=== PATIENT | male | born 1945 | race Caucasian/White ===

== ENCOUNTER 2020-01-05 12:43 | Inpatient (IN) ==
--- NOTE | 2020-01-05 13:31 | ERNOTE ---
Neuro HPI ER Record Date of Service: 01/05/20 Presenting Symptoms: confusion Time Seen by Provider: 01/05/20 12:57 Source: patient, family - Exam Limitations: clinical condition Immunizations: IMMUNIZATION HX Immunizations Up to Date Yes History of Influenza Vaccine Yes Hx Pneumococcal Vaccination No Allergies/Adverse Reactions: Allergies Allergy/AdvReac Type Severity Reaction Status Date / Time cephalexin Allergy Intermediate rash Verified 11/05/17 09:03 indomethacin Allergy Mild rash Verified 11/05/17 09:03 felodipine Allergy Unknown Verified 11/05/17 09:02 metformin Allergy Unknown Verified 11/05/17 09:01 hydromorphone AdvReac Intermediate hallucinati Verified 11/05/17 09:02 ons Home Medications: HOME MEDICATIONS Allopurinol [Zyloprim] 300 mg PO DAILY 01/05/20 [Last Taken Unknown] Aspirin [Aspirin Chewable] 81 mg PO DAILY 01/05/20 [Last Taken Unknown] Atorvastatin Calcium [Lipitor] 10 mg PO DAILY 01/05/20 [Last Taken Unknown] Clonidine HCl 0.2 mg PO DAILY 01/05/20 [Last Taken Unknown] Ergocalciferol (Vitamin D2) [Vitamin D2] 50,000 unit PO DAILY 01/05/20 [Last Taken Unknown] Ferrous Sulfate [Iron] 325 mg PO DAILY 01/05/20 [Last Taken Unknown] Furosemide [Lasix] 40 mg PO DAILY 01/05/20 [Last Taken Unknown] Gabapentin [Neurontin] 300 mg PO BID 01/05/20 [Last Taken Unknown] Metoprolol Tartrate [Lopressor] 25 mg PO BID 01/05/20 [Last Taken Unknown] Oxybutynin Chloride [Ditropan Xl] 10 mg PO DAILY 01/05/20 [Last Taken Unknown] Pantoprazole Sodium [Protonix] 20 mg PO DAILY 01/05/20 [Last Taken Unknown] Vitamin B Complex 1 ea PO DAILY 01/05/20 [Last Taken Unknown] Warfarin Sodium [Jantoven] 5 mg PO DAILY 01/05/20 [Last Taken Unknown] amLODIPine BESYLATE [Norvasc] 10 mg PO DAILY 01/05/20 [Last Taken Unknown] prednisoLONE [Millipred] 2.5 mg PO DAILY 01/05/20 [Last Taken Unknown] - History of Present Illness Narrative: The patient is a 74 year old male who presents via [facility] with altered mental status which has been present since this afternoon. There are associated symptoms of fever and cough. The patient denies pain. There are no alleviating factors. There are no aggravating factors. Previous treatments have included: none. The past medical history includes: COPD, HTN, IN, pacemaker, CRF, arthritis and hemorrhagic CVA. The social history is positive for former smoker. The patient has had ill contacts at home. states that patient developed cough 2 weeks ago which has been persistent since onset. states that 8 days ago he had a day of confusion that resolved and seemed to be doing well except for decreased appetite associated with loss of taste and smell. Patient today was found by in their bedroom with feces on the floor walking in stool in circles and disoriented. Patient upon arrival of EMS to the home had reported fever of 105F then repeat temp in the rig of 103F. Review of Systems - Narrative Narrative: ROS obtained from due to patient's AMS. - Review of Systems Constitutional: Present: fever, fatigue, decreased activity level ENT: Present: nose congestion, other - loss of taste and smell. Absent: nasal drainage Respiratory: Present: cough Gastrointestinal/Abdominal: Present: eating less, drinking less. Absent: vomiting, diarrhea Genitourinary: Present: decreased urinary output Medical History (Last Reviewed 01/05/20 @ 13:50 by LAURA Nova) Arthritis Brain bleed COPD (chronic obstructive pulmonary disease) Cervical spine fracture Hypertension Kidney disease Myocardial infarction Pacemaker Surgical History: Surgical History (Last Updated 01/05/20 @ 16:29 by Jana Goetz RN) Aortic valve replaced 2018 Hx of appendectomy S/P triple vessel bypass 2003 Family History: Family History (Last Updated 01/05/20 @ 16:30 by Jana Goetz RN) Mother Cancer Father Cancer Sister Cancer Social History: (Last Reviewed 01/05/20 @ 13:50 by LAURA Nova) Tobacco: Smoking Status: Former smoker Physical Exam - Physical Exam General Appearance: Present: alert, mild distress, attentive for age Head Exam: Present: normal inspection, no evidence of injury Eye Exam: Normal inspection: bilateral, PERRL: bilateral, EOMI: bilateral Ears, Nose, Throat: Present: dry mucous membranes Neck: Present: normal inspection Respiratory: Present: no respiratory distress, accessory muscle use, decreased breath sounds - bases bilateral Cardiovascular/Chest: Present: no murmur, tachycardia Gastrointestinal/Abdominal: Present: normal bowel sounds, nontender, nondistended, soft, no organomegaly Extremity Exam: Present: no edema Neurological Exam: Present: alert, normal mood/affect, no motor/sensory deficits, disoriented to time, disoriented to situation, other - follows commands. Absent: disoriented to person, disoriented to place Skin Exam: Present: normal color, warm/dry, other - facial flushing Marianna Coma Scale - Assess Eye Opening: Spontaneous Motor: Obeys Commands Verbal: Confused - Total Coma Scale Total: 14 Progress - Date and Time Seen: Date and Time: 01/05/20 15:19 states that patient was evaluated at [facility] ER on Sunday due to persistent symptoms. Patient received IV dose of steroids and then was started on Prednisone 20mg po daily. Testing results obtained from [facility] and patient was COVID positive. 01/05/20 16:05 Patient now awake and alert and oriented x3. Patient does not recall events that brought him to ER. Case was reviewed with and will admit for hypoxia and COVID-19, difficulty obtaining patient history due to him being poor historian as well as attempting to collect all information. Unsure if patient has known history of Afib, patient does take Warfarin but has history of cardiac stent. CTA negative for PE but shows akila infiltrates likely associated with COVID but will cover with Azithromycin as now known history of antibiotic therapy recently. Patient did not receive am medications, will administer IV Lasix due to hypoxia and elevated BNP 4,000. Reviewed indications with , will review upon admission since patient has had symptoms reported by spouse for 2 weeks. 01/05/20 16:36 Discussed results of INR 1.24, will start patient on Lovenox 1mg/kg due to subtherapeutic level. - Results and Orders Patient's Lab Results:: I have reviewed the patient's lab results. - Vital Signs Patient's Vital Signs:: I have reviewed the patient's vital signs. Vital Signs: Vital Signs 01/05/20 12:45 Temperature 38.9 C H Pulse Rate 106 H Respiratory Rate 28 H Blood Pressure 153/81 H O2 Sat by Pulse Oximetry 78 L - EKG EKG #1 EKG: atrial fibrillation - RVR rate 115, nonspecific ST T wave changes EKG read: Reviewed by me - CT/Ultrasound CT/Ultrasound Narrative: IMPRESSION: 1. NO ACUTE INTRACRANIAL PROCESS; IF THERE IS CONTINUED CLINICAL CONCERN, FOLLOW-UP MRI IS RECOMMENDED Electronically signed by Zion Burgess M.D.. - Progress/Reassessment Chief Complaint: Altered Mental Status Progress:: Improved Departure Clinical Impression: COVID-19, Hypoxia CHF (congestive heart failure) Qualifiers: Heart failure type: unspecified Heart failure chronicity: unspecified Qualified Code(s): I50.9 - Heart failure, unspecified A-fib Qualifiers: Atrial fibrillation type: unspecified Qualified Code(s): I48.91 - Unspecified atrial fibrillation - Departure Disposition: Still a patient Condition: Fair
[2020-01-05] MEDS ORDERED: NORMAL SALINE 1,000 ML IV ONE (13:36)
[2020-01-05] MEDS ORDERED: ACETAMINOPHEN 1,000 MG/100 ML BTL IV ONE (13:36)
[2020-01-05 14:06] LABS: Urine Bilirubin Negative (NEGATIVE); Urine Ketone Negative (NEGATIVE); Urine Nitrite Negative (NEGATIVE); Urine Protein 30 mg/dL (NEGATIVE); Urine Specific Gravity 1.015 SP.GR. (1.005-1.030); Urine Urobilinogen 4 EU/dl (NORMAL)
[2020-01-05 14:07] LABS: Hematocrit 45.1 % (42.0-52.0); Hemoglobin 14.5 gm/dL (13.5-18.0); Mean Cell Volume 100.2 fl (78-100); Mean Corpuscular Hemoglobin 32.2 pg (27-31); Mean Corpuscular Hgb Conc 32.2 g/dl (32-36); Neutrophil # 6.7 K/mm3 (1.3-6.0); Neutrophil % 86.7 % (42-75.0); Platelet Count 136 K/mm3 (150-450); Red Cell Distribution Width 13.5 % (11.5-14.0); White Blood Count 7.8 K/mm3 (4.0-10.5)
[2020-01-05 14:17] LABS: Urine Appearance Clear (CLEAR); Urine Bacteria TRACE; Urine Blood 5 /ul (NEGATIVE); Urine Color Yellow; Urine RBC TRACE /hpf (0-5); Urine WBC TRACE /hpf (0-5)
[2020-01-05 14:21] LABS: Troponin I 0.074 ng/mL (0.00-0.10)
[2020-01-05 14:22] LABS: Albumin * 3.1 gm/dl (3.4-5.0); Anion Gap 7.2 mmol/L (6.8-13.8); BUN/Creatinine Ratio 22.5 (9.0-21.6); Bilirubin, Total 1.1 mg/dL (0.0-1.1); Ca. Corrected For Albumin 9.8 mg/dL (8.4-10.2); Calcium * 9.4 mg/dL (7.9-10.9); Carbon Dioxide 39.8 mmol/L (24-32.6); Total Protein 7.2 gm/dL (6.2-8.2)
[2020-01-05] MEDS ORDERED: FUROSEMIDE 10 MG/ML VIAL IV ONE (16:11)
[2020-01-05 16:25] LABS: Prothrombin Time (Patient) 12.3 Seconds (9.1-10.7)
[2020-01-05] MEDS ORDERED: AZITHROMYCIN 500 MG in DEXTROSE 5 % IN WATER 250 ML IV ONE ×2 (16:26)
[2020-01-05 16:28] LABS: INR 1.25 INR (0.92-1.08); Partial Thrombolplastin Time 28.5 Seconds (24-32)
[2020-01-05] MEDS ORDERED: ENOXAPARIN SODIUM 100 MG/ML SYRG SC SCH (16:45)
--- NOTE | 2020-01-05 18:38 | HP ---
Chief Complaint - Chief Complaint Date of Service: 01/05/20 Time of Service: 18:38 Chief Complaint: AMS, cough, + covid History of Present Illness: 74-year-old male with history of MT, CVA, COPD presented to the ER with altered metal status. Patient diagnosed with Covid last week. Patient has had a cough for the last 2 weeks. Today found patient walking around feces in their bedroom, responding inappropriately to questions. Ambulance was called who came in and brought patient to the ER. Initial fever at home was close to 105 per EMS. Patient was given IV Tylenol here in the ER, started on Lovenox, admitted for Covid infection and altered mental status. Patient's initial temp was 38.9, has been afebrile since given the Tylenol. Patient had a normal white count. Patient was found to have an elevated BNP at 4055. Patient does have some swelling in his legs but is not in respiratory distress. Patient initially was hypoxic but has responded well to oxygen administration via nasal cannula. Patient is on warfarin but was subtherapeutic at 1.25. CTA was negative for pulmonary bolus. Patient admitted as inpatient for Covid infection, transferred to the floor. Medical History (Last Updated 01/05/20 @ 16:29 by Jana Goetz RN) Arthritis Atrial fibrillation Brain bleed CHF (congestive heart failure) COPD (chronic obstructive pulmonary disease) Cervical spine fracture Hypertension Kidney disease Myocardial infarction Pacemaker Pacemaker Surgical History: Surgical History (Last Updated 01/05/20 @ 16:29 by Jana Goetz RN) Aortic valve replaced 2018 Hx of appendectomy S/P triple vessel bypass 2004 Family History: Family History (Last Updated 01/05/20 @ 16:30 by Jana Goetz RN) Mother Cancer Father Cancer Sister Cancer Social History: (Last Updated 01/05/20 @ 16:30 by Jana Goetz RN) Social History: lives independently: Yes household members: spouse parent marital status: current occupational status: retired Tobacco: Smoking Status: Former smoker Alcohol: alcohol intake: current alcohol intake frequency: holiday/special occasion Substance Use: substance use type: does not use Dietary Habits: caffeine: Yes Type: coffee Review Of Systems (GEN) - Review of Systems Generalized/Overall Review: Present: Fever. Absent: Weakness, Chills EENTM: Present: No Symptoms Reported Respiratory: Present: Cough, Shortness of Breath Cardiac: Present: Edema. Absent: Chest Pain, Palpitations Abdominal: Present: No Symptoms Reported Genitourinary: Present: No Symptoms Reported Musculoskeletal: Present: No Symptoms Reported Neurological: Absent: Headache, Weakness Skin: Present: No Symptoms Reported Endocrine: Present: No Symptoms Reported Immunizations: IMMUNIZATION HX Immunizations Up to Date Yes History of Influenza Vaccine Yes Hx Pneumococcal Vaccination No Allergies/Adverse Reactions: Allergies Allergy/AdvReac Type Severity Reaction Status Date / Time cephalexin Allergy Intermediate rash Verified 11/05/17 09:03 indomethacin Allergy Mild rash Verified 11/05/17 09:03 felodipine Allergy Unknown Verified 11/05/17 09:02 metformin Allergy Unknown Verified 11/05/17 09:01 hydromorphone AdvReac Intermediate hallucinati Verified 11/05/17 09:02 ons Home Medications: HOME MEDICATIONS Allopurinol [Zyloprim] 300 mg PO DAILY 01/05/20 [Last Taken Unknown] Aspirin [Aspirin Chewable] 81 mg PO DAILY 01/05/20 [Last Taken Unknown] Atorvastatin Calcium [Lipitor] 10 mg PO DAILY 01/05/20 [Last Taken Unknown] Clonidine HCl 0.2 mg PO DAILY 01/05/20 [Last Taken Unknown] Ergocalciferol (Vitamin D2) [Vitamin D2] 50,000 unit PO DAILY 01/05/20 [Last Taken Unknown] Ferrous Sulfate [Iron] 325 mg PO DAILY 01/05/20 [Last Taken Unknown] Furosemide [Lasix] 40 mg PO DAILY 01/05/20 [Last Taken Unknown] Gabapentin [Neurontin] 300 mg PO BID 01/05/20 [Last Taken Unknown] Metoprolol Tartrate [Lopressor] 25 mg PO BID 01/05/20 [Last Taken Unknown] Oxybutynin Chloride [Ditropan Xl] 10 mg PO DAILY 01/05/20 [Last Taken Unknown] Pantoprazole Sodium [Protonix] 20 mg PO DAILY 01/05/20 [Last Taken Unknown] Vitamin B Complex 1 ea PO DAILY 01/05/20 [Last Taken Unknown] Warfarin Sodium [Jantoven] 5 mg PO DAILY 01/05/20 [Last Taken Unknown] amLODIPine BESYLATE [Norvasc] 10 mg PO DAILY 01/05/20 [Last Taken Unknown] prednisoLONE [Millipred] 2.5 mg PO DAILY 01/05/20 [Last Taken Unknown] Exam - Exam Vital Signs: Vital Signs - Last Taken Temp 36.9 C 01/05/20 17:47 Pulse 116 H 01/05/20 17:47 Resp 20 01/05/20 17:47 BP 120/70 01/05/20 17:47 Pulse Ox 93 01/05/20 17:47 Constitutional: Present: Alert, Oriented x3, Cooperative, Elderly ENT Exam: Present: hard of hearing. Absent: nasal congestion, nasal drainage Eye Exam: bilateral eye: normal inspection, EOMI Neck: Present: non-tender, supple Respiratory: Present: chest non-tender, lungs clear, normal breath sounds, no respiratory distress Cardiovascular/Chest: Present: no murmur, tachycardia, edema Abdomen: Present: soft, nontender, nondistended, obese Extremity: Present: non-tender Skin Exam: Present: normal color, warm/dry Appearance: Present: appropriate appearance, appropriate insight Eye contact: Present: cooperative, good eye contact Thoughts: Present: normal thought pattern, no apparent hallucination, normal mood /affect Diagnostic Studies: Abnormal Lab Results 01/05/20 01/05/20 01/05/20 Range/Units 13:15 13:37 14:00 RBC 4.50 L (4.7-6.0) M/mm3 MCV 100.2 H (78-100) fl MCH 32.2 H (27-31) pg Plt Count 136 L (150-450) K/mm3 MPV 12.0 H (8-11.3) fl Immature Gran % (Auto) 2.30 H (0.001-0.429) % Immature Gran # (Auto) 0.18 H (0.000-0.0310) K/mm3 Neutrophils % 86.7 H (42-75.0) % Lymphocytes % 4.4 L (20-51) % Neutrophils # 6.7 H (1.3-6.0) K/mm3 Lymphocytes # 0.34 L (1.5-3.5) k/mm3 PT 12.3 H (9.1-10.7) Seconds INR (Anticoag Therapy) 1.25 H (0.92-1.08) INR D-Dimer (0.19-0.49) ug/mL pO2 48.9 L (83.0-108.0) mmHg HCO3 37.9 H (21.0-28.0) mmol/L Total CO2 39.2 H (19.0-24.0) mmol/L Base Excess 14.0 H (-2.0-3.0) mmol/L ABG pH 7.56 H (7.35-7.45) ABG O2 Sat (Measured) 89.2 L (94.0-98.0) % Sodium (132-142) mmol/L Plasma Sodium (130-142) mmol/L Potassium (3.4-4.6) mmol/L Carbon Dioxide (24-32.6) mmol/L BUN (6-23) mg/dL Creatinine (0.4-1.4) mg/dL Est GFR (Non-Af Amer) (60-130) mL/min BUN/Creatinine Ratio (9.0-21.6) AST (0-48) U/L B-Natriuretic Peptide (5-350) pg/mL Albumin (3.4-5.0) gm/dl Urine Protein (NEGATIVE) mg/dL Urine Blood (NEGATIVE) /ul Prot Sulfosalicylic Acd (0) mg/dL Urine Urobilinogen (NORMAL) EU/dl 01/05/20 01/05/20 01/05/20 Range/Units 14:00 14:00 14:00 RBC (4.7-6.0) M/mm3 MCV (78-100) fl MCH (27-31) pg Plt Count (150-450) K/mm3 MPV (8-11.3) fl Immature Gran % (Auto) (0.001-0.429) % Immature Gran # (Auto) (0.000-0.0310) K/mm3 Neutrophils % (42-75.0) % Lymphocytes % (20-51) % Neutrophils # (1.3-6.0) K/mm3 Lymphocytes # (1.5-3.5) k/mm3 PT (9.1-10.7) Seconds INR (Anticoag Therapy) (0.92-1.08) INR D-Dimer 5.62 H (0.19-0.49) ug/mL pO2 (83.0-108.0) mmHg HCO3 (21.0-28.0) mmol/L Total CO2 (19.0-24.0) mmol/L Base Excess (-2.0-3.0) mmol/L ABG pH (7.35-7.45) ABG O2 Sat (Measured) (94.0-98.0) % Sodium 144 H (132-142) mmol/L Plasma Sodium 144 H (130-142) mmol/L Potassium 3.0 L (3.4-4.6) mmol/L Carbon Dioxide 39.8 H (24-32.6) mmol/L BUN 48 H (6-23) mg/dL Creatinine 2.13 H (0.4-1.4) mg/dL Est GFR (Non-Af Amer) 33 L D (60-130) mL/min BUN/Creatinine Ratio 22.5 H (9.0-21.6) AST 52 H (0-48) U/L B-Natriuretic Peptide 4055 H (5-350) pg/mL Albumin 3.1 L (3.4-5.0) gm/dl Urine Protein 30 H (NEGATIVE) mg/dL Urine Blood 5 H (NEGATIVE) /ul Prot Sulfosalicylic Acd 2+ H (0) mg/dL Urine Urobilinogen 4 H (NORMAL) EU/dl Laboratory Results WBC 7.8 K/mm3 (4.0-10.5) 01/05/20 14:00 RBC 4.50 M/mm3 (4.7-6.0) L 01/05/20 14:00 Hgb 14.5 gm/dL (13.5-18.0) 01/05/20 14:00 Hct 45.1 % (42.0-52.0) 01/05/20 14:00 MCV 100.2 fl (78-100) H 01/05/20 14:00 MCH 32.2 pg (27-31) H 01/05/20 14:00 MCHC 32.2 g/dl (32-36) 01/05/20 14:00 RDW 13.5 % (11.5-14.0) 01/05/20 14:00 Plt Count 136 K/mm3 (150-450) L 01/05/20 14:00 MPV 12.0 fl (8-11.3) H 01/05/20 14:00 Immature Gran % (Auto) 2.30 % (0.001-0.429) H 01/05/20 14:00 Immature Gran # (Auto) 0.18 K/mm3 (0.000-0.0310) H 01/05/20 14:00 Neutrophils % 86.7 % (42-75.0) H 01/05/20 14:00 Lymphocytes % 4.4 % (20-51) L 01/05/20 14:00 Monocytes % 6.3 % (0.0-9) 01/05/20 14:00 Eosinophils % 0.0 % (0.0-3.0) 01/05/20 14:00 Basophils % 0.3 % (0.0-1.0) 01/05/20 14:00 Nucleated RBC % 0.0 k/mm3 (0-1) 01/05/20 14:00 Neutrophils # 6.7 K/mm3 (1.3-6.0) H 01/05/20 14:00 Lymphocytes # 0.34 k/mm3 (1.5-3.5) L 01/05/20 14:00 Monocytes # 0.5 k/mm3 (0.0-1.0) 01/05/20 14:00 Eosinophils # 0.0 k/mm3 (0.0-0.7) 01/05/20 14:00 Absolute Basophils 0.0 k/mm3 (0.0-0.1) 01/05/20 14:00 PT 12.3 Seconds (9.1-10.7) H 01/05/20 13:37 INR (Anticoag Therapy) 1.25 INR (0.92-1.08) H 01/05/20 13:37 PTT (Rice) 28.5 Seconds (24-32) 01/05/20 13:37 D-Dimer 5.62 ug/mL (0.19-0.49) H 01/05/20 14:00 pCO2 43.4 mmHg (35.0-48.0) 01/05/20 13:15 pO2 48.9 mmHg (83.0-108.0) L 01/05/20 13:15 HCO3 37.9 mmol/L (21.0-28.0) H 01/05/20 13:15 Total CO2 39.2 mmol/L (19.0-24.0) H 01/05/20 13:15 Base Excess 14.0 mmol/L (-2.0-3.0) H 01/05/20 13:15 ABG pH 7.56 (7.35-7.45) H 01/05/20 13:15 ABG O2 Sat (Measured) 89.2 % (94.0-98.0) L 01/05/20 13:15 Sodium 144 mmol/L (132-142) H 01/05/20 14:00 Plasma Sodium 144 mmol/L (130-142) H 01/05/20 14:00 Potassium 3.0 mmol/L (3.4-4.6) L 01/05/20 14:00 Chloride 100 mmol/L (97-106) 01/05/20 14:00 Carbon Dioxide 39.8 mmol/L (24-32.6) H 01/05/20 14:00 Anion Gap 7.2 mmol/L (6.8-13.8) 01/05/20 14:00 BUN 48 mg/dL (6-23) H 01/05/20 14:00 Creatinine 2.13 mg/dL (0.4-1.4) H 01/05/20 14:00 Est GFR (Non-Af Amer) 33 mL/min (60-130) L D 01/05/20 14:00 BUN/Creatinine Ratio 22.5 (9.0-21.6) H 01/05/20 14:00 Random Glucose 94 mg/dL (70-110) 01/05/20 14:00 Lactic Acid, Venous 1.7 mmol/L (0.4-2.0) 01/05/20 14:00 Calcium 9.4 mg/dL (7.9-10.9) 01/05/20 14:00 Calcium Adj for Albumin 9.8 mg/dL (8.4-10.2) 01/05/20 14:00 Total Bilirubin 1.1 mg/dL (0.0-1.1) 01/05/20 14:00 AST 52 U/L (0-48) H 01/05/20 14:00 ALT 31 U/L (19-67) 01/05/20 14:00 Alkaline Phosphatase 54 U/L (50-170) 01/05/20 14:00 Troponin I 0.074 ng/mL (0.00-0.10) 01/05/20 14:00 B-Natriuretic Peptide 4055 pg/mL (5-350) H 01/05/20 14:00 Total Protein 7.2 gm/dL (6.2-8.2) 01/05/20 14:00 Albumin 3.1 gm/dl (3.4-5.0) L 01/05/20 14:00 Procalcitonin 0.46 ng/mL (0.05-0.50) 01/05/20 14:00 Urine Color Yellow 01/05/20 14:00 Urine Appearance Clear (CLEAR) 01/05/20 14:00 Urine pH 7.0 pH (5.0-7.0) 01/05/20 14:00 Ur Specific [place] 1.015 SP.GR. (1.005-1.030) 01/05/20 14:00 Urine Protein 30 mg/dL (NEGATIVE) H 01/05/20 14:00 Urine Glucose (UA) Negative mg/dL (NEGATIVE) 01/05/20 14:00 Urine Ketones Negative mg/dL (NEGATIVE) 01/05/20 14:00 Urine Blood 5 /ul (NEGATIVE) H 01/05/20 14:00 Urine Nitrate Negative (NEGATIVE) 01/05/20 14:00 Urine Bilirubin Negative mg/dl (NEGATIVE) 01/05/20 14:00 Prot Sulfosalicylic Acd 2+ mg/dL (0) H 01/05/20 14:00 Urine Urobilinogen 4 EU/dl (NORMAL) H 01/05/20 14:00 Ur Leukocyte Esterase Negative /ul (NEGATIVE) 01/05/20 14:00 Urine RBC Trace /hpf (0-5) 01/05/20 14:00 Urine WBC Trace /hpf (0-5) 01/05/20 14:00 Ur Epithelial Cells Trace /hpf (0-5) 01/05/20 14:00 Urine Bacteria Trace (NONE) 01/05/20 14:00 Urine Culture Comments No culture indicated 01/05/20 14:00 Assessment/Plan - Assessment/Plan (1) COVID-19 Assessment: Admitted as inpatient. Started on oxygen via nasal cannula for hypoxia. Currently receiving Lovenox at 80 mg twice daily until Coumadin is therapeutic. Repeat INR in the morning. Started on Decadron 6 mg daily. Problem: Acute (2) CHF (congestive heart failure) Assessment: Fluid restricting patient to 2000 cc free fluid. Strict I's and O's. Patient received IV Lasix in the ER. Restarted home Lasix dose. Problem: Acute Qualifiers: Heart failure type: unspecified Heart failure chronicity: unspecified Qualified Code(s): I50.9 - Heart failure, unspecified (3) A-fib Assessment: Patient not any chest pain. Patient on warfarin for this. Patient subtherapeutic again, being bridged with Lovenox. Repeat INR in the morning Problem: Acute Qualifiers: Atrial fibrillation type: unspecified Qualified Code(s): I48.91 - Unspecified atrial fibrillation (4) Hypoxia Assessment: Resolved with oxygen via nasal cannula. We will continue to monitor. Want to keep oxygen saturations between 91 and 93% Problem: Acute (5) Subtherapeutic international normalized ratio (INR) Assessment: Extra dose of warfarin given today. On Lovenox. Repeat INR in the morning. Problem: Acute
[2020-01-05] MEDS ORDERED: DEXAMETHASONE SODIUM PHOSPHATE 4 MG/ML VIAL IV SCH (18:45)
[2020-01-05] MEDS ORDERED: ENOXAPARIN SODIUM 40 MG/0.4 ML SYRG SC SCH (18:45)
[2020-01-05] MEDS: WARFARIN SODIUM 5 MG TABLET PO SCH (20:58)
[2020-01-05] MEDS: OXYBUTYNIN CHLORIDE 5 MG TABLET PO SCH (20:59)
[2020-01-05] MEDS: GABAPENTIN 300 MG CAPSULE PO SCH (20:59)
[2020-01-05] MEDS: ACETAMINOPHEN 325 MG TABLET PO SCH (20:59)
[2020-01-05] MEDS: METOPROLOL TARTRATE 25 MG TABLET PO SCH (21:00)
[2020-01-06] MEDS: ACETAMINOPHEN 325 MG TABLET PO SCH ×4 (01:32→21:21)
[2020-01-06 06:59] LABS: INR 1.29 INR (0.92-1.08); Prothrombin Time (Patient) 12.6 Seconds (9.1-10.7)
[2020-01-06] MEDS ORDERED: ROSUVASTATIN CALCIUM 5 MG TABLET PO SCH (09:00)
[2020-01-06] MEDS ORDERED: ENOXAPARIN SODIUM 40 MG/0.4 ML SYRG SC SCH (09:00)
[2020-01-06] MEDS: ALLOPURINOL 300 MG TABLET PO SCH (09:29)
[2020-01-06] MEDS: OXYBUTYNIN CHLORIDE 5 MG TABLET PO SCH ×2 (09:29→21:21)
[2020-01-06] MEDS: METOPROLOL TARTRATE 25 MG TABLET PO SCH ×2 (09:29→21:24)
[2020-01-06] MEDS: GABAPENTIN 300 MG CAPSULE PO SCH ×2 (09:29→21:20)
[2020-01-06] MEDS: PANTOPRAZOLE SODIUM 20 MG TABLET.DR PO SCH (09:29)
[2020-01-06] MEDS: amLODIPine BESYLATE 10 MG TABLET PO SCH (09:31)
[2020-01-06] MEDS: FUROSEMIDE 40 MG TABLET PO SCH (09:31)
[2020-01-06] MEDS: ENOXAPARIN SODIUM 80 MG/0.8 ML DISP.SYRIN SC SCH ×2 (09:38→21:21)
[2020-01-06] MEDS: DEXAMETHASONE SODIUM PHOSPHATE 10 MG/ML VIAL IV SCH (09:42)
[2020-01-06] MEDS ORDERED: METOPROLOL TARTRATE 25 MG TABLET PO ONE (11:30)
[2020-01-06] MEDS: WARFARIN SODIUM 5 MG TABLET PO SCH (17:09)
--- NOTE | 2020-01-06 19:02 | PN ---
Subjective - Date and Time Seen Date: 01/06/20 Time: 19:02 Subjective Narrative: Zion feels ok today. Still having shortness of breath. Still hypoxic without o2. No acute events over night. Objective - Review of Systems Generalized/Overall Review: Denies: Weakness, Chills, Fever EENTM: Reports: No Symptoms Reported Respiratory: Reports: Cough, Shortness of Breath Cardiac: Reports: No Symptoms Reported Abdominal: Reports: No Symptoms Reported Skin: Reports: No Symptoms Reported Endocrine: Reports: No Symptoms Reported - Vitals Vitals: Last Vital Signs Temp 36 C 01/06/20 18:02 Pulse 101 H 01/06/20 18:02 Resp 16 01/06/20 18:02 BP 152/85 H 01/06/20 18:02 Pulse Ox 95 01/06/20 18:02 - Abnormal Lab Findings Abnormal Lab Findings: Abnormal Lab Results 01/06/20 Range/Units 06:45 PT 12.6 H (9.1-10.7) Seconds INR (Anticoag Therapy) 1.29 H (0.92-1.08) INR - Exam Constitutional: Present: Alert, Oriented x3, Elderly Respiratory: Present: lungs clear, normal breath sounds Cardiovascular/Chest: Present: regular rate, rhythm, no murmur, edema Abdomen: Present: soft, nontender Skin Exam: Present: normal color, warm/dry Appearance: Present: appropriate appearance, appropriate insight Eye contact: Present: cooperative, good eye contact Thoughts: Present: normal thought pattern, normal mood /affect Assessment/Plan - Problems/Diagnosis (1) COVID-19 Problem: Acute Narrative: Continue o2, lovenox, decadromn. Stable, vitals appropriate currently. (2) CHF (congestive heart failure) Problem: Acute Qualifiers: Heart failure type: unspecified Heart failure chronicity: unspecified Qualified Code(s): I50.9 - Heart failure, unspecified (3) A-fib Problem: Acute Qualifiers: Atrial fibrillation type: unspecified Qualified Code(s): I48.91 - Unspecified atrial fibrillation Narrative: Subtherapeutic on warfarin, on lovenox. HR mildly elevated, increased his beta dick to 50 mg BID. (4) Hypoxia Problem: Acute Narrative: Stable on o2 via NC (5) Subtherapeutic international normalized ratio (INR) Problem: Acute
[2020-01-06] MEDS: ROSUVASTATIN CALCIUM 5 MG TABLET PO SCH (21:21)
[2020-01-06] MEDS: METOPROLOL TARTRATE 50 MG TABLET PO SCH (21:23)
[2020-01-07] MEDS: ACETAMINOPHEN 325 MG TABLET PO SCH ×4 (02:12→21:53)
[2020-01-07] MEDS: ENOXAPARIN SODIUM 80 MG/0.8 ML DISP.SYRIN SC SCH ×2 (07:10→21:53)
[2020-01-07 07:42] LABS: INR 1.43 INR (0.92-1.08)
[2020-01-07] MEDS: DEXAMETHASONE SODIUM PHOSPHATE 10 MG/ML VIAL IV SCH (08:00)
[2020-01-07] MEDS: FUROSEMIDE 40 MG TABLET PO SCH (08:00)
[2020-01-07] MEDS: GABAPENTIN 300 MG CAPSULE PO SCH ×2 (08:01→21:54)
[2020-01-07] MEDS: OXYBUTYNIN CHLORIDE 5 MG TABLET PO SCH ×2 (08:02→21:54)
[2020-01-07] MEDS: amLODIPine BESYLATE 10 MG TABLET PO SCH (08:02)
[2020-01-07] MEDS: ALLOPURINOL 300 MG TABLET PO SCH (08:02)
[2020-01-07] MEDS: PANTOPRAZOLE SODIUM 20 MG TABLET.DR PO SCH (08:02)
[2020-01-07] MEDS: METOPROLOL TARTRATE 50 MG TABLET PO SCH ×2 (08:35→21:54)
[2020-01-07 08:53] LABS: Anion Gap 5.2 mmol/L (6.8-13.8); BUN/Creatinine Ratio 17.4 (9.0-21.6); Calcium * 8.8 mg/dL (7.9-10.9); Carbon Dioxide 37.6 mmol/L (24-32.6); Estimated Creat Clear 39.5; Potassium 2.8 mmol/L (3.4-4.6)
--- NOTE | 2020-01-07 17:36 | PN ---
Subjective - Date and Time Seen Date: 01/07/20 Time: 17:35 Subjective Narrative: Zion is doing much better today as well. Cognitively back to baseline. Patient is getting a little stir crazy but otherwise feels well. Breathing is much better and is maintaining good sats on 2 L of oxygen. He did have a slight fever this morning around 6 AM but otherwise has been afebrile. Objective - Review of Systems Generalized/Overall Review: Denies: Weakness, Chills, Fever EENTM: Reports: No Symptoms Reported Respiratory: Reports: Cough - Mild. Denies: Shortness of Breath Cardiac: Denies: Chest Pain, Edema Abdominal: Denies: Nausea, Vomiting Genitourinary Symptoms: Reports: No Symptoms Reported Musculoskeletal Complaints: Reports: No Symptoms Reported Neurological: Reports: No Symptoms Reported Skin: Reports: No Symptoms Reported - Vitals Vitals: Last Vital Signs Temp 36.1 C 01/07/20 13:59 Pulse 96 01/07/20 16:46 Resp 18 01/07/20 16:46 BP 127/74 01/07/20 16:46 Pulse Ox 95 01/07/20 16:46 - Abnormal Lab Findings Abnormal Lab Findings: Abnormal Lab Results 01/07/20 01/07/20 Range/Units 07:20 07:20 PT 14.0 H (9.1-10.7) Seconds INR (Anticoag Therapy) 1.43 H (0.92-1.08) INR Potassium 2.8 L (3.4-4.6) mmol/L Carbon Dioxide 37.6 H (24-32.6) mmol/L Anion Gap 5.2 L (6.8-13.8) mmol/L BUN 30 H (6-23) mg/dL Creatinine 1.72 H D (0.4-1.4) mg/dL Est GFR (Non-Af Amer) 42 L D (60-130) mL/min Random Glucose 127 H D (70-110) mg/dL - Exam Constitutional: Present: Alert, Oriented x3, No distress, Elderly Respiratory: Present: lungs clear, normal breath sounds, no respiratory distress, other - On 2 L nasal cannula Cardiovascular/Chest: Present: regular rate, rhythm, no murmur Abdomen: Present: soft, nontender, nondistended Extremity: Absent: lower extremity edema Skin Exam: Present: normal color, warm/dry Appearance: Present: appropriate appearance, appropriate insight Thoughts: Present: normal thought pattern, normal mood /affect Assessment/Plan Plan Narrative: Patient appears to be doing very well. If he maintains sats overnight on 2 L or less than likely would be discharged home tomorrow with oxygen. He is still subtherapeutic on his INR though and may need to go home with Lovenox. Repeat INR in the morning. We will continue Decadron. Continue Lovenox. Nurse to call with questions or concerns. - Problems/Diagnosis (1) COVID-19 Problem: Acute (2) CHF (congestive heart failure) Problem: Acute Qualifiers: Heart failure type: unspecified Heart failure chronicity: unspecified Qualified Code(s): I50.9 - Heart failure, unspecified (3) A-fib Problem: Acute Qualifiers: Atrial fibrillation type: unspecified Qualified Code(s): I48.91 - Unspecified atrial fibrillation (4) Hypoxia Problem: Acute (5) Subtherapeutic international normalized ratio (INR) Problem: Acute
[2020-01-07] MEDS: WARFARIN SODIUM 5 MG TABLET PO SCH (18:47)
[2020-01-07] MEDS: ROSUVASTATIN CALCIUM 5 MG TABLET PO SCH (21:54)
[2020-01-08] MEDS: ACETAMINOPHEN 325 MG TABLET PO SCH ×4 (02:07→19:29)
[2020-01-08] MEDS: ENOXAPARIN SODIUM 80 MG/0.8 ML DISP.SYRIN SC SCH (07:24)
[2020-01-08] MEDS: METOPROLOL TARTRATE 50 MG TABLET PO SCH ×2 (08:30→20:53)
[2020-01-08] MEDS: FUROSEMIDE 40 MG TABLET PO SCH (08:31)
[2020-01-08] MEDS: PANTOPRAZOLE SODIUM 20 MG TABLET.DR PO SCH (08:31)
[2020-01-08] MEDS: amLODIPine BESYLATE 10 MG TABLET PO SCH (08:31)
[2020-01-08] MEDS: ALLOPURINOL 300 MG TABLET PO SCH (08:31)
[2020-01-08] MEDS: OXYBUTYNIN CHLORIDE 5 MG TABLET PO SCH ×2 (08:32→20:51)
[2020-01-08] MEDS: DEXAMETHASONE SODIUM PHOSPHATE 10 MG/ML VIAL IV SCH (08:32)
[2020-01-08] MEDS: GABAPENTIN 300 MG CAPSULE PO SCH ×2 (08:33→20:51)
[2020-01-08 09:28] LABS: Prothrombin Time (Patient) 21.2 Seconds (9.1-10.7)
[2020-01-08 09:29] LABS: INR 2.21 INR (0.92-1.08)
[2020-01-08] MEDS ORDERED: POTASSIUM CHLORIDE 20 MEQ/15 ML UDC PO SCH (09:30)
[2020-01-08] MEDS: POTASSIUM CHLORIDE 40 MEQ/15 ML LIQUID PO SCH (10:03)
[2020-01-08] MEDS: WARFARIN SODIUM 5 MG TABLET PO SCH (16:02)
[2020-01-08] MEDS ORDERED: WARFARIN SODIUM 2.5 MG TABLET PO ONE (17:00)
[2020-01-08 17:04] LABS: Anion Gap 5.9 mmol/L (6.8-13.8); BUN/Creatinine Ratio 17.6 (9.0-21.6); Calcium * 8.7 mg/dL (7.9-10.9); Estimated Creat Clear 41.2; Potassium 3.9 mmol/L (3.4-4.6)
[2020-01-08] MEDS: ROSUVASTATIN CALCIUM 5 MG TABLET PO SCH (20:51)
[2020-01-08] MEDS: POTASSIUM CHLORIDE 20 MEQ TABLET.SA PO SCH (21:24)
[2020-01-08] MEDS ORDERED: POTASSIUM CHLORIDE 40 MEQ/15 ML LIQUID PO SCH (21:30)
--- NOTE | 2020-01-08 23:32 | PN ---
Subjective - Date and Time Seen Date: 01/08/20 Time: 17:23 Subjective Narrative: PAtient resting comfortably in his bed. Vitals currently stable. He does desat in the mornings while sleeping but otherwise feels great and has no concerns. His INR is back within normal limits. Lovenox stopped today Objective - Review of Systems Generalized/Overall Review: Denies: Weakness, Chills, Fever EENTM: Reports: No Symptoms Reported Respiratory: Reports: Cough, Shortness of Breath Cardiac: Denies: Chest Pain, Edema Abdominal: Denies: No Symptoms Reported Genitourinary Symptoms: Denies: No Symptoms Reported Musculoskeletal Complaints: Denies: No Symptoms Reported Neurological: Denies: No Symptoms Reported - Vitals Vitals: Last Vital Signs Temp 36.3 C 01/08/20 21:32 Pulse 86 01/08/20 21:32 Resp 22 H 01/08/20 21:32 BP 153/91 H 01/08/20 21:32 Pulse Ox 95 01/08/20 21:32 - Abnormal Lab Findings Abnormal Lab Findings: Abnormal Lab Results 01/08/20 01/08/20 Range/Units 09:05 16:37 PT 21.2 H (9.1-10.7) Seconds INR (Anticoag Therapy) 2.21 H (0.92-1.08) INR Carbon Dioxide 36.0 H (24-32.6) mmol/L Anion Gap 5.9 L (6.8-13.8) mmol/L BUN 29 H (6-23) mg/dL Creatinine 1.65 H (0.4-1.4) mg/dL Est GFR (Non-Af Amer) 44 L (60-130) mL/min Random Glucose 324 H D (70-110) mg/dL - Exam Constitutional: Present: Alert, Oriented x3, No distress, Elderly ENT Exam: Present: hard of hearing Neck: Present: non-tender, supple Respiratory: Present: lungs clear, no respiratory distress. Absent: crackles Cardiovascular/Chest: Present: no murmur, irregularly irregular Skin Exam: Present: normal color, warm/dry Appearance: Present: appropriate appearance, appropriate insight Thoughts: Present: normal thought pattern, normal mood /affect Assessment/Plan - Problems/Diagnosis (1) COVID-19 Problem: Acute Narrative: Patient with cough. denies SOB. Pstient is afebrile for last 24 hours. Sats stabilize except he does have some hypoxia in the early mornings. Will increase o2 flow via NC this evening. Otherwise he has done well on 2 L. Stopped lovemox, he is now therapeutic on warfarin. Continue decadron Likely dc tomorrow with oxygen (2) CHF (congestive heart failure) Problem: Acute Qualifiers: Heart failure type: unspecified Heart failure chronicity: unspecified Qualified Code(s): I50.9 - Heart failure, unspecified (3) A-fib Problem: Acute Qualifiers: Atrial fibrillation type: unspecified Qualified Code(s): I48.91 - Unspecified atrial fibrillation Narrative: Rate much better controlled when increased his metoprolol. Also on warfatin, no therapeutic (4) Hypoxia Problem: Resolved (5) Subtherapeutic international normalized ratio (INR) Problem: Resolved
[2020-01-09] MEDS: ACETAMINOPHEN 325 MG TABLET PO SCH ×3 (02:04→14:20)
[2020-01-09] MEDS: POTASSIUM CHLORIDE 40 MEQ/15 ML LIQUID PO SCH (06:19)
[2020-01-09 08:00] LABS: Prothrombin Time (Patient) 29.2 Seconds (9.1-10.7)
[2020-01-09 08:04] LABS: INR 3.08 INR (0.92-1.08)
[2020-01-09] MEDS: GABAPENTIN 300 MG CAPSULE PO SCH (08:33)
[2020-01-09] MEDS: OXYBUTYNIN CHLORIDE 5 MG TABLET PO SCH (08:34)
[2020-01-09] MEDS: FUROSEMIDE 40 MG TABLET PO SCH (08:34)
[2020-01-09] MEDS: amLODIPine BESYLATE 10 MG TABLET PO SCH (08:34)
[2020-01-09] MEDS: POTASSIUM CHLORIDE 20 MEQ TABLET.SA PO SCH (08:34)
[2020-01-09] MEDS: ALLOPURINOL 300 MG TABLET PO SCH (08:34)
[2020-01-09] MEDS: PANTOPRAZOLE SODIUM 20 MG TABLET.DR PO SCH (08:35)
[2020-01-09] MEDS: METOPROLOL TARTRATE 50 MG TABLET PO SCH (08:35)
[2020-01-09] MEDS: DEXAMETHASONE SODIUM PHOSPHATE 10 MG/ML VIAL IV SCH (08:36)
--- NOTE | 2020-01-09 13:08 | DS ---
(1) Acute respiratory failure due to COVID-19 Problem: Resolved (2) A-fib Problem: Acute Qualifiers: Atrial fibrillation type: unspecified Qualified Code(s): I48.91 - Unspecified atrial fibrillation (3) COVID-19 Problem: Acute (4) Hypertension Problem: Acute Qualifiers: Hypertension type: essential hypertension Qualified Code(s): I10 - Essential (primary) hypertension (5) Subtherapeutic international normalized ratio (INR) Problem: Resolved (6) CHF (congestive heart failure) Problem: Resolved Qualifiers: Heart failure type: diastolic Heart failure chronicity: unspecified Qualified Code(s): I50.30 - Unspecified diastolic (congestive) heart failure Date of Discharge:: 01/09/20 Hospital Course: Zion is a 74 yo male admitted for acute respiratory failure with hypoxia secondary to COVID-19. He was treated with IV dexamethasone and oxygen. His oxygen requirements have been stable over the last few days and he appears to be at a new baseline at the moment. He is feeling better and would like to be discharged to home. He will be discharged to home on 3lpm of oxygen continuous. He will follow up with a video visit in a week. His metoprolol was increased from 25mg BID to 50mg BID. I will send him home on a tapered dose of prednisolone of 5mg daily x 5 days and then down to his home dose of 2.5mg daily. He has evidence of sleep apnea and will need an outpatient sleep study in the future. Procedures Performed: none Results and Findings: Pending Mircobiology Results 01/05/20 14:21 Blood Blood Culture - Preliminary NO GROWTH AFTER 48 HOURS 01/05/20 14:00 Blood Blood Culture - Preliminary NO GROWTH AFTER 48 HOURS Lab Pending Results 01/05/20 13:15: pCO2 43.4, pO2 48.9 L, HCO3 37.9 H, Total CO2 39.2 H, Base Excess 14.0 H, ABG pH 7.56 H, ABG O2 Sat (Measured) 89.2 L 01/05/20 13:37: PT 12.3 H, INR (Anticoag Therapy) 1.25 H, PTT (Iker) 28.5 01/05/20 14:00: Procalcitonin 0.46 01/05/20 14:00: WBC 7.8, RBC 4.50 L, Hgb 14.5, Hct 45.1, MCV 100.2 H, MCH 32.2 H, MCHC 32.2, RDW 13.5, Plt Count 136 L, MPV 12.0 H, Immature Gran % (Auto) 2.30 H, Immature Gran # (Auto) 0.18 H, Neutrophils % 86.7 H, Lymphocytes % 4.4 L, Monocytes % 6.3, Eosinophils % 0.0, Basophils % 0.3, Nucleated RBC % 0.0, Neutrophils # 6.7 H, Lymphocytes # 0.34 L, Monocytes # 0.5, Eosinophils # 0.0, Absolute Basophils 0.0 01/05/20 14:00: Sodium 144 H, Plasma Sodium 144 H, Potassium 3.0 L, Chloride 100, Carbon Dioxide 39.8 H, Anion Gap 7.2, BUN 48 H, Creatinine 2.13 H, Est GFR (Non-Af Amer) 33 L D, BUN/Creatinine Ratio 22.5 H, Random Glucose 94, Calcium 9.4, Calcium Adj for Albumin 9.8, Total Bilirubin 1.1, AST 52 H, ALT 31, Alkaline Phosphatase 54, Troponin I 0.074, B-Natriuretic Peptide 4055 H, Total Protein 7.2, Albumin 3.1 L 01/05/20 14:00: Lactic Acid, Venous 1.7 01/05/20 14:00: Urine Color Yellow, Urine Appearance Clear, Urine pH 7.0, Ur Specific [place] 1.015, Urine Protein 30 H, Urine Glucose (UA) Negative, Urine Ketones Negative, Urine Blood 5 H, Urine Nitrate Negative, Urine Bilirubin Negative, Prot Sulfosalicylic Acd 2+ H, Urine Urobilinogen 4 H, Ur Leukocyte Esterase Negative, Urine RBC Trace, Urine WBC Trace, Ur Epithelial Cells Trace, Urine Bacteria Trace, Urine Culture Comments No culture indicated 01/05/20 14:00: D-Dimer 5.62 H 01/06/20 06:45: PT 12.6 H, INR (Anticoag Therapy) 1.29 H 01/07/20 07:20: Sodium 138, Plasma Sodium 138, Potassium 2.8 L, Chloride 98, Carbon Dioxide 37.6 H, Anion Gap 5.2 L, BUN 30 H, Creatinine 1.72 H D, Est GFR (Non-Af Amer) 42 L D, BUN/Creatinine Ratio 17.4, Random Glucose 127 H D, Calcium 8.8 01/07/20 07:20: PT 14.0 H, INR (Anticoag Therapy) 1.43 H 01/08/20 09:05: PT 21.2 H, INR (Anticoag Therapy) 2.21 H 01/08/20 16:37: Sodium 136, Plasma Sodium 140, Potassium 3.9 D, Chloride 98, Carbon Dioxide 36.0 H, Anion Gap 5.9 L, BUN 29 H, Creatinine 1.65 H, Est GFR (Non-Af Amer) 44 L, BUN/Creatinine Ratio 17.6, Random Glucose 324 H D, Calcium 8.7 01/09/20 07:41: PT 29.2 H, INR (Anticoag Therapy) 3.08 H Discharge Location: Home Disposition: Home self-care Condition: Fair Discharge Activity: Activity as tolerated Discharge Diet: General/regular food Referrals: Beverley Mittal FNP [Non Staff Physicians] - (Video visit in one week) Problem Oriented Discharge Instructions to Patient/Family: COVID-19 Additional Patient Instructions (free text): Follow up Video call with Dr. Beverley Mittal on SundayJanuary 19 at 10:00. (Dr Ede Davis is off for 2 weeks) Please fax chart information to [phone]. Oxygen coming from [facility] in [place], is their phone number. Prescriptions (Any new or edited meds): Metoprolol Tartrate [Lopressor] 50 mg PO Q12H #60 tab Transmission Status: Pending to [place], [place] prednisoLONE [Millipred] 5 mg PO DAILY #5 tab Transmission Status: Pending to [place], [place] Complete Home Medications List: Complete Home Medication List: Allopurinol [Zyloprim] 300 mg PO DAILY 01/05/20 Aspirin [Aspirin Chewable] 81 mg PO DAILY 01/05/20 Atorvastatin Calcium [Lipitor] 10 mg PO DAILY 01/05/20 Clonidine HCl 0.2 mg PO DAILY 01/05/20 Ergocalciferol (Vitamin D2) [Vitamin D2] 50,000 unit PO 2XW 01/05/20 Ferrous Sulfate [Iron] 325 mg PO DAILY 01/05/20 Furosemide [Lasix] 40 mg PO DAILY 01/05/20 Gabapentin [Neurontin] 300 mg PO BID 01/05/20 Oxybutynin Chloride [Ditropan Xl] 10 mg PO DAILY 01/05/20 Pantoprazole Sodium [Protonix] 20 mg PO DAILY 01/05/20 Vitamin B Complex 1 ea PO DAILY 01/05/20 Warfarin Sodium [Jantoven] 5 mg PO DAILY 01/05/20 amLODIPine BESYLATE [Norvasc] 10 mg PO DAILY 01/05/20 prednisoLONE [Millipred] 2.5 mg PO DAILY 01/05/20 Acetaminophen [Tylenol] 650 mg PO Q6H tablet 01/09/20 Metoprolol Tartrate [Lopressor] 50 mg PO Q12H #60 tab 01/09/20 prednisoLONE [Millipred] 5 mg PO DAILY #5 tab 01/09/20
[2020-01-09 16:22] VITALS: BP 128/78
[2020-01-09] MEDS ORDERED: WARFARIN SODIUM 1 TAB TAB PO SCH (17:00)
== END 2020-01-09 16:18 | disposition home or self-care (01) | DRG 177 ==
LOC: ER 12:43 → MS 16:17
PROVIDERS: ADMIT Family Medicine; ATTEND Family Medicine

== ENCOUNTER 2020-01-24 13:13 | Observation (INO) ==
[2020-01-24] MEDS ORDERED: ACETAMINOPHEN 1,000 MG/100 ML BTL IV ONE (13:22)
--- NOTE | 2020-01-24 13:44 | ERNOTE ---
Medical Problem HPI - Narrative Date of Service: 01/24/20 - General Chief Complaint: General Assessment Time Seen by Provider: 01/24/20 13:20 Source: patient, EMS Exam Limitations: clinical condition - Immun/Allergies/Home Medications Immunizations: IMMUNIZATION HX Immunizations Up to Date Yes History of Influenza Vaccine Yes Hx Pneumococcal Vaccination Yes Allergies/Adverse Reactions: Allergies cephalexin Allergy (Intermediate, Verified 11/05/17 09:03) rash indomethacin Allergy (Mild, Verified 11/05/17 09:03) rash felodipine Allergy (Unknown, Verified 11/05/17 09:02) metformin Allergy (Unknown, Verified 11/05/17 09:01) hydromorphone Adverse Reaction (Intermediate, Verified 11/05/17 09:02) hallucinations Home Medications: HOME MEDICATIONS Allopurinol [Zyloprim] 300 mg PO DAILY 01/05/20 [Last Taken Unknown] Aspirin [Aspirin Chewable] 81 mg PO DAILY 01/05/20 [Last Taken Unknown] Atorvastatin Calcium [Lipitor] 10 mg PO DAILY 01/05/20 [Last Taken Unknown] Clonidine HCl 0.2 mg PO DAILY 01/05/20 [Last Taken Unknown] Ergocalciferol (Vitamin D2) [Vitamin D2] 50,000 unit PO 2XW 01/05/20 [Last Taken Unknown] Ferrous Sulfate [Iron] 325 mg PO DAILY 01/05/20 [Last Taken Unknown] Furosemide [Lasix] 40 mg PO DAILY 01/05/20 [Last Taken Unknown] Gabapentin [Neurontin] 300 mg PO BID 01/05/20 [Last Taken Unknown] Oxybutynin Chloride [Ditropan Xl] 10 mg PO DAILY 01/05/20 [Last Taken Unknown] Pantoprazole Sodium [Protonix] 20 mg PO DAILY 01/05/20 [Last Taken Unknown] Vitamin B Complex 1 ea PO DAILY 01/05/20 [Last Taken Unknown] Warfarin Sodium [Jantoven] 5 mg PO DAILY 01/05/20 [Last Taken Unknown] amLODIPine BESYLATE [Norvasc] 10 mg PO DAILY 01/05/20 [Last Taken Unknown] prednisoLONE [Millipred] 2.5 mg PO DAILY 01/05/20 [Last Taken Unknown] Acetaminophen [Tylenol] 650 mg PO Q6H tab 01/09/20 [Last Taken Unknown] Metoprolol Tartrate [Lopressor] 50 mg PO Q12H #60 tab 01/09/20 [Last Taken Unknown] prednisoLONE [Millipred] 5 mg PO DAILY #5 tab 01/09/20 [Last Taken Unknown] - History of Present History Narrative: Patient presents to the ED for weakness, covid positive and hospitalized recently for that. On home O2 now since the Covid. Today he had apparently fallen out of bed and could not get up. He had knocked his oxygen off when that happened apparently and had been without oxygen for some time. found him and could not get him up but put his oxygen back on. Seemed confused at that time. Generalized weakness and fever with inability to get up. He tells me he is doing "ok". Denies pain. Fever noted here. He denies focal weakness. No back pain. States he is urinating "fine". Timing: constant Modifying Factors - (Improves): Present: other - nothing Modifying Factors - (Worsens): Present: other - nothing Review of Systems - Review of Systems Constitutional: Present: fever EYE: Present: no symptoms reported ENT: Absent: sore throat Respiratory: Absent: cough Cardiology: Absent: chest pain Gastrointestinal/Abdominal: Absent: abdominal pain Genitourinary: Absent: dysuria Neurological: Present: See HPI All Other Systems: All systems neg except as marked Medical History (Last Reviewed 01/24/20 @ 13:40 by Max Parkinson MD) Arthritis Atrial fibrillation Brain bleed CHF (congestive heart failure) COPD (chronic obstructive pulmonary disease) Cervical spine fracture Hypertension Kidney disease Myocardial infarction Pacemaker Pacemaker Surgical History: Surgical History (Last Reviewed 01/24/20 @ 13:40 by Max Parkinson MD) Aortic valve replaced 2018 Hx of appendectomy S/P triple vessel bypass 2003 Family History: Family History (Last Reviewed 01/24/20 @ 13:40 by Max Parkinson MD) Mother Cancer Father Cancer Sister Cancer Social History: (Last Reviewed 01/24/20 @ 13:40 by Max Parkinson MD) Social History: lives independently: Yes household members: spouse parent marital status: current occupational status: retired Tobacco: Smoking Status: Former smoker Alcohol: alcohol intake: current alcohol intake frequency: holiday/special occasion Substance Use: substance use type: does not use Dietary Habits: caffeine: Yes Type: coffee Physical Exam - Physical Exam General Appearance: Present: alert, no apparent distress Head Exam: Present: normal inspection, no evidence of injury Eye Exam: Normal inspection: bilateral, PERRL: bilateral Ears, Nose, Throat: Present: normal ENT inspection Neck: Present: normal inspection, nontender, other - no spinal tenderness to palpation. Absent: tender posterior midline Respiratory: Present: no respiratory distress, other - diminished breath sounds bilaterally Cardiovascular/Chest: Present: normal peripheral pulses, irregularly irregular Gastrointestinal/Abdominal: Present: normal bowel sounds, nontender, nondistended, soft Back Exam: Absent: CVA tenderness (R), CVA tenderness (L) Extremity Exam: Present: no edema. Absent: calf tenderness Neurological Exam: Present: alert, other - seems slightly confused and slow to respond but does answer questions appropiately but briefly. No pronator drift. Holds right leg up off the bed, left leg drifts back down but then he will lift it back up with encouragement, dificult exam. Skin Exam: Present: normal color, warm/dry Progress - Results and Orders Patient's Lab Results:: I have reviewed the patient's lab results. - Vital Signs Patient's Vital Signs:: I have reviewed the patient's vital signs. Vital Signs: Vital Signs 01/24/20 13:17 Temperature 38.2 C H Pulse Rate 92 Respiratory Rate 21 H Blood Pressure 133/57 O2 Sat by Pulse Oximetry 98 - EKG EKG #1 EKG: atrial fibrillation EKG read: Interp. by me EKG Comments: A Fib rate 93. Non-specific ST/T wave changes, no clear evidence of STEMI - X-Ray X-Ray #1 X-Ray: chest Interpretation: Interp. by me X-ray Comments: I personally reviewed the CXR image, no real time radiology reads. Multifocal pneumonia, right greater than left - CT/Ultrasound CT/Ultrasound Narrative: I reviewed official radiology report for CT head. - Progress/Reassessment Chief Complaint: General Assessment Progress Note-Subjective: 01/24/20 14:54 Patient given IV fluids, no overt signs of CHF and BP mildly low in the 90s. IV ABx given. Likely bacterial infection superimposed on Covid. Patient understands need for admission. Nothing to suggest ACS or PE. D/W Dr Jackson. She will admit for further evaluation and management. Will hold CT angio chest for now given he is on chronic anticoagulation. Departure Clinical Impression: Secondary bacterial pneumonia, COVID-19 with multiple comorbidities, Fever, Generalized weakness - Departure Disposition: Still a patient Condition: Fair Referrals: Daniel Davis MD [Primary Care Provider] -
[2020-01-24 13:59] LABS: Hematocrit 41.8 % (42.0-52.0); Hemoglobin 13.5 gm/dL (13.5-18.0); Mean Corpuscular Hemoglobin 32.3 pg (27-31); Mean Corpuscular Hgb Conc 32.3 g/dl (32-36); Mean Platelet Volume 12.1 fl (8-11.3); Platelet Count 118 K/mm3 (150-450); Red Blood Count 4.18 M/mm3 (4.7-6.0); Red Cell Distribution Width 14.2 % (11.5-14.0); White Blood Count 24.4 K/mm3 (4.0-10.5)
[2020-01-24 14:02] LABS: Total Cells Counted 100
[2020-01-24 14:08] LABS: Prothrombin Time (Patient) 11.9 Seconds (9.1-10.7)
[2020-01-24 14:13] LABS: INR 1.21 INR (0.92-1.08)
[2020-01-24] MEDS ORDERED: LEVOFLOXACIN IN DEXTROSE 5 % 500 MG/100 ML BAG IV SCH (14:15)
[2020-01-24 14:18] LABS: Anion Gap 9.8 mmol/L (6.8-13.8); BUN/Creatinine Ratio 17.3 (9.0-21.6); Bilirubin, Total 0.8 mg/dL (0.0-1.1); Ca. Corrected For Albumin 9.9 mg/dL (8.4-10.2); Calcium * 9.4 mg/dL (7.9-10.9); Carbon Dioxide 33.1 mmol/L (24-32.6); Potassium 3.9 mmol/L (3.4-4.6); Total Protein 7.1 gm/dL (6.2-8.2); Troponin I 0.051 ng/mL (0.00-0.10); Urine Appearance Slightly Cloudy (CLEAR); Urine Color Yellow
[2020-01-24 14:19] LABS: Urine Bilirubin Negative (NEGATIVE); Urine Ketone Negative (NEGATIVE)
[2020-01-24 14:20] LABS: Urine Blood Negative /ul (NEGATIVE); Urine Nitrite Negative (NEGATIVE); Urine Protein 15 mg/dL (NEGATIVE); Urine RBC 0-5 /hpf (0-5); Urine Specific Gravity 1.015 SP.GR. (1.005-1.030); Urine Urobilinogen Normal (NORMAL); Urine WBC 0-5 /hpf (0-5)
[2020-01-24 14:21] LABS: Urine Bacteria 1+
[2020-01-24] MEDS ORDERED: NORMAL SALINE 1,000 ML IV ONE ×2 (14:26→14:43)
[2020-01-24 14:31] LABS: Band 10 % (0-2.0); Lymphocyte 3 % (20-51); Monocyte 2 % (0-9); Neutrophil 85 % (42-75); Neutrophil # 20.7 K/mm3 (1.3-6.0)
[2020-01-24 14:32] LABS: Platelet Estimate Decreased (NORMAL)
[2020-01-24 14:34] LABS: RBC Morphology Normal (NORMAL)
[2020-01-24] MEDS: ACETAMINOPHEN 325 MG TABLET PO SCH ×2 (18:45→23:26)
--- NOTE | 2020-01-24 20:41 | HP ---
Chief Complaint - Chief Complaint Date of Service: 01/24/20 Time of Service: 20:41 Chief Complaint: collapse History of Present Illness: Patient was admitted to our facility from January 04 through with Covid pneumonia, and was discharged on 3 L oxygen. He has been at home, gradually improving, until today when he collapsed. He felt chilled last night, but otherwise denies shortness of breath or cough. In the ED, he was febrile to 38. 7. White blood cell count elevated at 24.4. Chest x-ray showed low lung volumes and bilateral heterogenous opacities suggesting pneumonia. Lactate elevated to 2.4, repeat done 3 hours later was also 2.4. Procalcitonin elevated at 17.04. D-dimer mildly elevated at 2.2. He was considered to have secondary bacterial pneumonia and admitted for IV antibiotics. He had one low blood pressure reading in the ED of 97/58. He had one isolated elevated heart rate of 103. Respiratory rate has been intermittently high. He received a dose of Levaquin in the ER, and normal saline was started at 150 cc/h. On my exam, he reports feeling almost at his baseline. He felt like he was getting stronger at home. His oxygen requirement has decreased from 3 L initially on presentation to the ED, down to 1 L currently. Some of his presentation suggests sepsis, but he does not appear acutely ill. He does not appear to have pneumonia on exam and denies cough or dyspnea. Blood cultures pending. Urinalysis negative for nitrates or leukocyte esterase. He was diagnosed with Covid the week prior to his previous admission, which would have been close to a month ago. Medical History (Last Reviewed 01/24/20 @ 16:31 by Whitney Yanez RN) Arthritis Brain bleed CHF (congestive heart failure) COPD (chronic obstructive pulmonary disease) Cervical spine fracture Hypertension Kidney disease Myocardial infarction Pacemaker Pacemaker Surgical History: Surgical History (Last Updated 01/24/20 @ 20:24 by Zoë Aguayo RN) Atrial fibrillation (Acute) Watchman implant in 2018 Aortic valve replaced 2018 Hx of appendectomy S/P triple vessel bypass 2003 Family History: Family History (Last Reviewed 01/24/20 @ 16:32 by Whitney Yanez RN) Mother Cancer Father Cancer Sister Cancer Social History: (Last Reviewed 01/24/20 @ 13:40 by Max Parkinson MD) Social History: lives independently: Yes household members: spouse parent marital status: current occupational status: retired Tobacco: Smoking Status: Former smoker Alcohol: alcohol intake: current alcohol intake frequency: holiday/special occasion Substance Use: substance use type: does not use Dietary Habits: caffeine: Yes Type: coffee Review Of Systems (GEN) - Review of Systems Generalized/Overall Review: Present: Chills, Fever Respiratory: Absent: Cough, Shortness of Breath Cardiac: Absent: Chest Pain, Edema Abdominal: Absent: Nausea, Vomiting Genitourinary: Absent: Dysuria Skin: Present: No Symptoms Reported Immunizations: IMMUNIZATION HX Immunizations Up to Date Yes History of Influenza Vaccine Yes Hx Pneumococcal Vaccination Yes Allergies/Adverse Reactions: Allergies Allergy/AdvReac Type Severity Reaction Status Date / Time cephalexin Allergy Intermediate rash Verified 11/05/17 09:03 indomethacin Allergy Mild rash Verified 11/05/17 09:03 felodipine Allergy Unknown Verified 11/05/17 09:02 metformin Allergy Unknown Verified 11/05/17 09:01 hydromorphone AdvReac Intermediate hallucinati Verified 11/05/17 09:02 ons Home Medications: HOME MEDICATIONS Allopurinol [Zyloprim] 300 mg PO DAILY 01/05/20 [Last Taken Unknown] Aspirin [Aspirin Chewable] 81 mg PO DAILY 01/05/20 [Last Taken Unknown] Atorvastatin Calcium [Lipitor] 10 mg PO DAILY 01/05/20 [Last Taken Unknown] Clonidine HCl 0.2 mg PO BID 01/05/20 [Last Taken Unknown] Ergocalciferol (Vitamin D2) [Vitamin D2] 50,000 unit PO 2XW 01/05/20 [Last Taken Unknown] Gabapentin [Neurontin] 300 mg PO TID 01/05/20 [Last Taken Unknown] Pantoprazole Sodium [Protonix] 20 mg PO DAILY 01/05/20 [Last Taken Unknown] Vitamin B Complex 1 ea PO DAILY 01/05/20 [Last Taken Unknown] amLODIPine BESYLATE [Norvasc] 10 mg PO DAILY 01/05/20 [Last Taken Unknown] prednisoLONE [Millipred] 2.5 mg PO DAILY 01/05/20 [Last Taken Unknown] Acetaminophen [Tylenol] 650 mg PO Q6H tab 01/09/20 [Last Taken Unknown] Metoprolol Tartrate [Lopressor] 50 mg PO Q12H #60 tab 01/09/20 [Last Taken Unknown] Allopurinol [Zyloprim (Allopurinol)] 100 mg PO DAILY 01/24/20 [Last Taken Unknown] Folic Acid 1 mg PO DAILY 01/24/20 [Last Taken Unknown] Gabapentin 1,200 mg PO HS 01/24/20 [Last Taken Unknown] Gabapentin 600 mg PO DAILY 01/24/20 [Last Taken Unknown] Methotrexate Sodium [Methotrexate] 2.5 mg PO Q7D 01/24/20 [Last Taken Unknown] Zolpidem Tartrate 5 - 10 mg PO HS PRN 01/24/20 [Last Taken Unknown] Exam - Exam Vital Signs: Vital Signs - Last Taken Temp 37.7 C 01/24/20 18:50 Pulse 72 01/24/20 18:50 Resp 18 01/24/20 18:50 BP 101/54 01/24/20 18:50 Pulse Ox 100 01/24/20 19:54 Constitutional: Present: Alert, Cooperative, No distress Respiratory: Present: normal breath sounds, no respiratory distress, other - Wearing 1 L via nasal cannula Cardiovascular/Chest: Present: regular rate, rhythm. Absent: edema Abdomen: Present: soft, nontender Extremity: Absent: lower extremity edema Neurologic: Present: other - Some responses to questions seem delayed Eye contact: Present: cooperative, good eye contact Diagnostic Studies: Abnormal Lab Results 01/24/20 01/24/20 01/24/20 Range/Units 13:40 13:40 13:40 WBC 24.4 H (4.0-10.5) K/mm3 RBC 4.18 L (4.7-6.0) M/mm3 Hct 41.8 L (42.0-52.0) % MCH 32.3 H (27-31) pg RDW 14.2 H (11.5-14.0) % Plt Count 118 L (150-450) K/mm3 MPV 12.1 H (8-11.3) fl Neutrophils % (Manual) 85 H (42-75) % Band Neuts % (Manual) 10 H (0-2.0) % Lymphocytes % (Manual) 3 L (20-51) % Neutrophils # (Manual) 20.7 H (1.3-6.0) K/mm3 Lymphocytes # (Manual) 0.7 L (1.5-3.5) k/mm3 Platelet Estimate Decreased L (NORMAL) PT (9.1-10.7) Seconds INR (Anticoag Therapy) (0.92-1.08) INR D-Dimer (0.19-0.49) ug/mL pO2 (83.0-108.0) mmHg HCO3 (21.0-28.0) mmol/L Total CO2 (19.0-24.0) mmol/L Base Excess (-2.0-3.0) mmol/L ABG pH (7.35-7.45) Carbon Dioxide 33.1 H (24-32.6) mmol/L BUN 34 H (6-23) mg/dL Creatinine 1.97 H (0.4-1.4) mg/dL Est GFR (Non-Af Amer) 36 L (60-130) mL/min Random Glucose 189 H (70-110) mg/dL Lactic Acid, Venous (0.4-2.0) mmol/L B-Natriuretic Peptide 4537 H (5-350) pg/mL Albumin 3.0 L (3.4-5.0) gm/dl Procalcitonin 17.04 H (0.05-0.50) ng/mL Urine Protein (NEGATIVE) mg/dL Urine Glucose (UA) (NEGATIVE) mg/dL Urine Bacteria (NONE) 01/24/20 01/24/20 01/24/20 Range/Units 13:40 13:40 13:40 WBC (4.0-10.5) K/mm3 RBC (4.7-6.0) M/mm3 Hct (42.0-52.0) % MCH (27-31) pg RDW (11.5-14.0) % Plt Count (150-450) K/mm3 MPV (8-11.3) fl Neutrophils % (Manual) (42-75) % Band Neuts % (Manual) (0-2.0) % Lymphocytes % (Manual) (20-51) % Neutrophils # (Manual) (1.3-6.0) K/mm3 Lymphocytes # (Manual) (1.5-3.5) k/mm3 Platelet Estimate (NORMAL) PT 11.9 H (9.1-10.7) Seconds INR (Anticoag Therapy) 1.21 H (0.92-1.08) INR D-Dimer 2.20 H (0.19-0.49) ug/mL pO2 (83.0-108.0) mmHg HCO3 (21.0-28.0) mmol/L Total CO2 (19.0-24.0) mmol/L Base Excess (-2.0-3.0) mmol/L ABG pH (7.35-7.45) Carbon Dioxide (24-32.6) mmol/L BUN (6-23) mg/dL Creatinine (0.4-1.4) mg/dL Est GFR (Non-Af Amer) (60-130) mL/min Random Glucose (70-110) mg/dL Lactic Acid, Venous 2.4 H* (0.4-2.0) mmol/L B-Natriuretic Peptide (5-350) pg/mL Albumin (3.4-5.0) gm/dl Procalcitonin (0.05-0.50) ng/mL Urine Protein (NEGATIVE) mg/dL Urine Glucose (UA) (NEGATIVE) mg/dL Urine Bacteria (NONE) 01/24/20 01/24/20 01/24/20 Range/Units 13:40 13:40 16:38 WBC (4.0-10.5) K/mm3 RBC (4.7-6.0) M/mm3 Hct (42.0-52.0) % MCH (27-31) pg RDW (11.5-14.0) % Plt Count (150-450) K/mm3 MPV (8-11.3) fl Neutrophils % (Manual) (42-75) % Band Neuts % (Manual) (0-2.0) % Lymphocytes % (Manual) (20-51) % Neutrophils # (Manual) (1.3-6.0) K/mm3 Lymphocytes # (Manual) (1.5-3.5) k/mm3 Platelet Estimate (NORMAL) PT (9.1-10.7) Seconds INR (Anticoag Therapy) (0.92-1.08) INR D-Dimer (0.19-0.49) ug/mL pO2 82.9 L (83.0-108.0) mmHg HCO3 33.5 H (21.0-28.0) mmol/L Total CO2 34.9 H (19.0-24.0) mmol/L Base Excess 8.8 H (-2.0-3.0) mmol/L ABG pH 7.48 H (7.35-7.45) Carbon Dioxide (24-32.6) mmol/L BUN (6-23) mg/dL Creatinine (0.4-1.4) mg/dL Est GFR (Non-Af Amer) (60-130) mL/min Random Glucose (70-110) mg/dL Lactic Acid, Venous 2.4 H* (0.4-2.0) mmol/L B-Natriuretic Peptide (5-350) pg/mL Albumin (3.4-5.0) gm/dl Procalcitonin (0.05-0.50) ng/mL Urine Protein 15 H (NEGATIVE) mg/dL Urine Glucose (UA) 100 H (NEGATIVE) mg/dL Urine Bacteria 1+ H (NONE) Laboratory Results WBC 24.4 K/mm3 (4.0-10.5) H 01/24/20 13:40 RBC 4.18 M/mm3 (4.7-6.0) L 01/24/20 13:40 Hgb 13.5 gm/dL (13.5-18.0) 01/24/20 13:40 Hct 41.8 % (42.0-52.0) L 01/24/20 13:40 MCV 100.0 fl (78-100) 01/24/20 13:40 MCH 32.3 pg (27-31) H 01/24/20 13:40 MCHC 32.3 g/dl (32-36) 01/24/20 13:40 RDW 14.2 % (11.5-14.0) H 01/24/20 13:40 Plt Count 118 K/mm3 (150-450) L 01/24/20 13:40 MPV 12.1 fl (8-11.3) H 01/24/20 13:40 Neutrophils % (Manual) 85 % (42-75) H 01/24/20 13:40 Band Neuts % (Manual) 10 % (0-2.0) H 01/24/20 13:40 Lymphocytes % (Manual) 3 % (20-51) L 01/24/20 13:40 Monocytes % (Manual) 2 % (0-9) 01/24/20 13:40 Neutrophils # (Manual) 20.7 K/mm3 (1.3-6.0) H 01/24/20 13:40 Lymphocytes # (Manual) 0.7 k/mm3 (1.5-3.5) L 01/24/20 13:40 Monocytes # (Manual) 0.5 k/mm3 (0.0-1.0) 01/24/20 13:40 Platelet Estimate Decreased (NORMAL) L 01/24/20 13:40 RBC Morphology Normal (NORMAL) 01/24/20 13:40 PT 11.9 Seconds (9.1-10.7) H 01/24/20 13:40 INR (Anticoag Therapy) 1.21 INR (0.92-1.08) H 01/24/20 13:40 D-Dimer 2.20 ug/mL (0.19-0.49) H 01/24/20 13:40 pCO2 45.8 mmHg (35.0-48.0) 01/24/20 13:40 pO2 82.9 mmHg (83.0-108.0) L 01/24/20 13:40 HCO3 33.5 mmol/L (21.0-28.0) H 01/24/20 13:40 Total CO2 34.9 mmol/L (19.0-24.0) H 01/24/20 13:40 Base Excess 8.8 mmol/L (-2.0-3.0) H 01/24/20 13:40 ABG pH 7.48 (7.35-7.45) H 01/24/20 13:40 ABG O2 Sat (Measured) 96.7 % (94.0-98.0) 01/24/20 13:40 Sodium 139 mmol/L (132-142) 01/24/20 13:40 Plasma Sodium 140 mmol/L (130-142) 01/24/20 13:40 Potassium 3.9 mmol/L (3.4-4.6) 01/24/20 13:40 Chloride 100 mmol/L (97-106) 01/24/20 13:40 Carbon Dioxide 33.1 mmol/L (24-32.6) H 01/24/20 13:40 Anion Gap 9.8 mmol/L (6.8-13.8) 01/24/20 13:40 BUN 34 mg/dL (6-23) H 01/24/20 13:40 Creatinine 1.97 mg/dL (0.4-1.4) H 01/24/20 13:40 Est GFR (Non-Af Amer) 36 mL/min (60-130) L 01/24/20 13:40 BUN/Creatinine Ratio 17.3 (9.0-21.6) 01/24/20 13:40 Random Glucose 189 mg/dL (70-110) H 01/24/20 13:40 Lactic Acid, Venous 2.4 mmol/L (0.4-2.0) H* 01/24/20 16:38 Calcium 9.4 mg/dL (7.9-10.9) 01/24/20 13:40 Calcium Adj for Albumin 9.9 mg/dL (8.4-10.2) 01/24/20 13:40 Total Bilirubin 0.8 mg/dL (0.0-1.1) 01/24/20 13:40 AST 25 U/L (0-48) 01/24/20 13:40 ALT 50 U/L (19-67) 01/24/20 13:40 Alkaline Phosphatase 77 U/L (50-170) 01/24/20 13:40 Troponin I 0.051 ng/mL (0.00-0.10) 01/24/20 13:40 B-Natriuretic Peptide 4537 pg/mL (5-350) H 01/24/20 13:40 Total Protein 7.1 gm/dL (6.2-8.2) 01/24/20 13:40 Albumin 3.0 gm/dl (3.4-5.0) L 01/24/20 13:40 Procalcitonin 17.04 ng/mL (0.05-0.50) H 01/24/20 13:40 Urine Color Yellow 01/24/20 13:40 Urine Appearance Slightly cloudy (CLEAR) 01/24/20 13:40 Urine pH 6.0 pH (5.0-7.0) 01/24/20 13:40 Ur Specific [place] 1.015 SP.GR. (1.005-1.030) 01/24/20 13:40 Urine Protein 15 mg/dL (NEGATIVE) H 01/24/20 13:40 Urine Glucose (UA) 100 mg/dL (NEGATIVE) H 01/24/20 13:40 Urine Ketones Negative mg/dL (NEGATIVE) 01/24/20 13:40 Urine Blood Negative /ul (NEGATIVE) 01/24/20 13:40 Urine Nitrate Negative (NEGATIVE) 01/24/20 13:40 Urine Bilirubin Negative mg/dl (NEGATIVE) 01/24/20 13:40 Prot Sulfosalicylic Acd 1+ mg/dL (0) 01/24/20 13:40 Urine Urobilinogen Normal EU/dl (NORMAL) 01/24/20 13:40 Ur Leukocyte Esterase Negative /ul (NEGATIVE) 01/24/20 13:40 Urine RBC 0-5 /hpf (0-5) 01/24/20 13:40 Urine WBC 0-5 /hpf (0-5) 01/24/20 13:40 Ur Epithelial Cells 0-5 /hpf (0-5) 01/24/20 13:40 Urine Bacteria 1+ (NONE) H 01/24/20 13:40 Urine Culture Comments No culture indicated 01/24/20 13:40 Assessment/Plan - Narrative Narrative: He collapsed today, and does not remember the event. Unclear etiology at this time. He has an elevated white blood cell count of 24.4, highly elevated procalcitonin of 17, and was febrile, indicating an infection. However, he denies any symptoms of infection. Some of his responses seem delayed, and I had not met this patient prior to today, so I do not know if his mentation is at his baseline. There is a chance he may have had pulmonary symptoms, but is not reporting them. We will continue his Levaquin for potential secondary bacterial pneumonia. He was diagnosed with Covid close to a month ago and felt like he was getting stronger until this collapse today. He was discharged with 3 L from the hospital on January 08, and is using that up until today. Since arriving in the ED, this has decreased to 1 L. His decreased oxygen requirement, normalized heart rate and respiratory rate, make PE less likely. His EKG does show some inverted T waves in leads V4 through V6 that were not present last month. Initial troponin was not elevated, and repeat pending. We will also repeat EKG in the morning. He has a walker and a cane at home that he has used since his Covid infection. He did not need them prior to Covid. We will ask physical therapy to assess his mobility. Repeat labs pending for the morning, in addition to another EKG. We will monitor his oxygen requirements. If he has improvement in his labs and he feels strong enough, he could potentially go home as soon as tomorrow. - Assessment/Plan (1) Secondary bacterial pneumonia Problem: Acute (2) COVID-19 Problem: Acute (3) Fever Problem: Acute (4) Inverted T wave Problem: Acute (5) Generalized weakness Problem: Acute (6) A-fib Assessment: Warfarin was on his previous medication list, but he and his report he has not taken it in 2 years since he had a watchman filter placed for his A. fib. Problem: Acute Qualifiers: Atrial fibrillation type: unspecified Qualified Code(s): I48.91 - Unspecified atrial fibrillation (7) Hypoxia Problem: Resolved (8) Hypertension Problem: Acute Qualifiers: Hypertension type: essential hypertension Qualified Code(s): I10 - Essential (primary) hypertension
[2020-01-24] MEDS: METOPROLOL TARTRATE 50 MG TABLET PO SCH (20:54)
[2020-01-24] MEDS ORDERED: ENOXAPARIN SODIUM 40 MG/0.4 ML SYRG SC SCH (21:00)
[2020-01-25] MEDS: ACETAMINOPHEN 325 MG TABLET PO SCH ×2 (05:04→11:30)
[2020-01-25 06:58] LABS: Hematocrit 34.8 % (42.0-52.0); Hemoglobin 11.1 gm/dL (13.5-18.0); Mean Cell Volume 100.9 fl (78-100); Mean Corpuscular Hemoglobin 32.2 pg (27-31); Mean Corpuscular Hgb Conc 31.9 g/dl (32-36); Mean Platelet Volume 12.2 fl (8-11.3); Neutrophil # 9.4 K/mm3 (1.3-6.0); Platelet Count 80 K/mm3 (150-450); Red Blood Count 3.45 M/mm3 (4.7-6.0); Red Cell Distribution Width 14.3 % (11.5-14.0); White Blood Count 11.4 K/mm3 (4.0-10.5)
[2020-01-25 07:12] LABS: Albumin * 2.4 gm/dl (3.4-5.0); Anion Gap 4.9 mmol/L (6.8-13.8); BUN/Creatinine Ratio 19.9 (9.0-21.6); Bilirubin, Total 0.8 mg/dL (0.0-1.1); Carbon Dioxide 34.5 mmol/L (24-32.6); Potassium 3.4 mmol/L (3.4-4.6); Total Protein 6.1 gm/dL (6.2-8.2)
[2020-01-25] MEDS ORDERED: GABAPENTIN 300 MG CAPSULE PO SCH (09:00)
[2020-01-25] MEDS ORDERED: PREDNISOLONE 5 MG PO SCH ×3 (09:00)
[2020-01-25] MEDS ORDERED: GABAPENTIN 600 MG TABLET PO SCH (09:00)
[2020-01-25] MEDS ORDERED: WARFARIN SODIUM 5 MG TABLET PO SCH (09:00)
[2020-01-25] MEDS ORDERED: PANTOPRAZOLE SODIUM 20 MG TABLET.DR PO SCH (09:00)
[2020-01-25] MEDS ORDERED: ASPIRIN 81 MG TAB.CHEW PO SCH (09:00)
[2020-01-25] MEDS: METOPROLOL TARTRATE 50 MG TABLET PO SCH (09:39)
--- NOTE | 2020-01-25 11:29 | DS ---
(1) Secondary bacterial pneumonia Problem: Acute (2) COVID-19 Problem: Acute (3) Fever Problem: Resolved (4) Inverted T wave Problem: Acute (5) Generalized weakness Problem: Acute (6) A-fib Problem: Chronic Qualifiers: Atrial fibrillation type: unspecified Qualified Code(s): I48.91 - Unspecified atrial fibrillation (7) Hypoxia Problem: Resolved (8) Hypertension Problem: Chronic Qualifiers: Hypertension type: essential hypertension Qualified Code(s): I10 - Essential (primary) hypertension Date of Discharge:: 01/25/20 Hospital Course: Patient was admitted to our facility from January 04 through with Covid pneumonia, and was discharged on 3 L oxygen. He has been at home, gradually improving, until he collapsed at home on 01/23. He felt chilled the previous night, but otherwise denies shortness of breath or cough. In the ED, he was febrile to 38.7. White blood cell count elevated at 24.4. Chest x-ray showed low lung volumes and bilateral heterogenous opacities suggesting pneumonia. Lactate elevated to 2.4, repeat done 3 hours later was also 2.4, repeat 1.8. Procalcitonin elevated at 17.04. D-dimer mildly elevated at 2.2. He was considered to have secondary bacterial pneumonia and admitted for IV antibiotics. He had one low blood pressure reading in the ED of 97/58. He had one isolated elevated heart rate of 103. Respiratory rate has been intermittently high. He received a dose of Levaquin in the ER, and normal saline was started at 150 cc/h. On my admission exam, he reports feeling almost at his baseline. He felt like he was getting stronger at home. His oxygen requirement has decreased from 3 L initially on presentation to the ED, down to 1 L on admission exam. Some of his presentation suggests sepsis, but he does not appear acutely ill. Urinalysis negative for nitrates or leukocyte esterase. He was diagnosed with Covid the week prior to his previous admission, which would have been close to a month ago. The night of admission, he was able to wean from oxygen. His WBC improved to 11.4. EKG showed inverted T waves, improved on repeat. Troponin not elevated. He was able to walk with his walker, and felt safe going home on the day of DC. Will hold his antihypertensives, for somewhat low BP of 101/61. Can resume when BP is consistently 140/90. Will DC home with 4 additional days of levaquin. Procedures Performed: none Results and Findings: Lab Pending Results 01/24/20 13:40: Procalcitonin 17.04 H 01/24/20 13:40: Sodium 139, Plasma Sodium 140, Potassium 3.9, Chloride 100, Carbon Dioxide 33.1 H, Anion Gap 9.8, BUN 34 H, Creatinine 1.97 H, Est GFR (Non- Af Amer) 36 L, BUN/Creatinine Ratio 17.3, Random Glucose 189 H, Calcium 9.4, Calcium Adj for Albumin 9.9, Total Bilirubin 0.8, AST 25, ALT 50, Alkaline Phosphatase 77, Troponin I 0.051, B-Natriuretic Peptide 4537 H, Total Protein 7.1, Albumin 3.0 L 01/24/20 13:40: WBC 24.4 H, RBC 4.18 L, Hgb 13.5, Hct 41.8 L, MCV 100.0, MCH 32.3 H, MCHC 32.3, RDW 14.2 H, Plt Count 118 L, MPV 12.1 H, Neutrophils % (Manual) 85 H, Band Neuts % (Manual) 10 H, Lymphocytes % (Manual) 3 L, Monocytes % (Manual) 2, Neutrophils # (Manual) 20.7 H, Lymphocytes # (Manual) 0.7 L, Monocytes # (Manual) 0.5, Platelet Estimate Decreased L, RBC Morphology Normal 01/24/20 13:40: PT 11.9 H, INR (Anticoag Therapy) 1.21 H 01/24/20 13:40: D-Dimer 2.20 H 01/24/20 13:40: Lactic Acid, Venous 2.4 H* 01/24/20 13:40: pCO2 45.8, pO2 82.9 L, HCO3 33.5 H, Total CO2 34.9 H, Base Excess 8.8 H, ABG pH 7.48 H, ABG O2 Sat (Measured) 96.7 01/24/20 13:40: Urine Color Yellow, Urine Appearance Slightly cloudy, Urine pH 6.0, Ur Specific [place] 1.015, Urine Protein 15 H, Urine Glucose (UA) 100 H, Urine Ketones Negative, Urine Blood Negative, Urine Nitrate Negative, Urine Bilirubin Negative, Prot Sulfosalicylic Acd 1+, Urine Urobilinogen Normal, Ur L eukocyte Esterase Negative, Urine RBC 0-5, Urine WBC 0-5, Ur Epithelial Cells 0- 5, Urine Bacteria 1+ H, Urine Culture Comments No culture indicated 01/24/20 16:38: Lactic Acid, Venous 2.4 H* 01/24/20 21:20: Lactic Acid, Venous 1.8 01/24/20 21:20: Troponin I 0.045 01/25/20 06:50: WBC 11.4 H D, RBC 3.45 L, Hgb 11.1 L, Hct 34.8 L, MCV 100.9 H, MCH 32.2 H, MCHC 31.9 L, RDW 14.3 H, Plt Count 80 L, MPV 12.2 H, Immature Gran % (Auto) 0.40, Immature Gran # (Auto) 0.04 H, Neutrophils % 82.0 H, Lymphocytes % 8.3 L, Monocytes % 8.0, Eosinophils % 1.2, Basophils % 0.1, Nucleated RBC % 0.0, Neutrophils # 9.4 H, Lymphocytes # 0.95 L, Monocytes # 0.9, Eosinophils # 0.1, Absolute Basophils 0.0 01/25/20 06:50: Sodium 138, Plasma Sodium 138, Potassium 3.4, Chloride 102, Carbon Dioxide 34.5 H, Anion Gap 4.9 L, BUN 33 H, Creatinine 1.66 H, Est GFR (Non-Af Amer) 43 L, BUN/Creatinine Ratio 19.9, Random Glucose 111 H D, Calcium 9.0, Calcium Adj for Albumin 10.0, Total Bilirubin 0.8, AST 22, ALT 36, Alkaline Phosphatase 62, Total Protein 6.1 L, Albumin 2.4 L Discharge Location: Home Disposition: Home self-care Condition: Fair Discharge Activity: Activity as tolerated Discharge Diet: General/regular food Referrals: Daniel Davis MD [Primary Care Provider] - One Week Prescriptions (Any new or edited meds): Levofloxacin [Levaquin] 750 mg PO DAILY #4 tab Transmission Status: Pending to [place], [place] Complete Home Medications List: Complete Home Medication List: Allopurinol [Zyloprim] 300 mg PO DAILY 01/05/20 Aspirin [Aspirin Chewable] 81 mg PO DAILY 01/05/20 Atorvastatin Calcium [Lipitor] 10 mg PO DAILY 01/05/20 Clonidine HCl 0.2 mg PO BID 01/05/20 Ergocalciferol (Vitamin D2) [Vitamin D2] 50,000 unit PO 2XW 01/05/20 Gabapentin [Neurontin] 300 mg PO TID 01/05/20 Pantoprazole Sodium [Protonix] 20 mg PO DAILY 01/05/20 Vitamin B Complex 1 ea PO DAILY 01/05/20 amLODIPine BESYLATE [Norvasc] 10 mg PO DAILY 01/05/20 prednisoLONE [Millipred] 2.5 mg PO DAILY 01/05/20 Acetaminophen [Tylenol] 650 mg PO Q6H tab 01/09/20 Metoprolol Tartrate [Lopressor] 50 mg PO Q12H #60 tab 01/09/20 Allopurinol [Zyloprim] 100 mg PO DAILY 01/24/20 Folic Acid 1 mg PO DAILY 01/24/20 Gabapentin 1,200 mg PO HS 01/24/20 Gabapentin 600 mg PO DAILY 01/24/20 Methotrexate Sodium [Methotrexate] 2.5 mg PO Q7D 01/24/20 Zolpidem Tartrate 5 - 10 mg PO HS PRN 01/24/20 Levofloxacin [Levaquin] 750 mg PO DAILY #4 tab 01/25/20 Forms: Patient Portal Registration
[2020-01-25 13:22] VITALS: BP 125/57
[2020-01-27] MEDS ORDERED: METHOTREXATE SODIUM 2.5 MG TABLET PO SCH (09:00)
== END 2020-01-25 13:30 | disposition home or self-care (01) ==
LOC: MS 13:13 → ER 13:13 → MS 16:10
PROVIDERS: ADMIT Family Medicine; ATTEND Family Medicine
DX: J15.9 Unspecified bacterial pneumonia; Z79.01 Long term (current) use of anticoagulants; Z87.891 Personal history of nicotine dependence; I10 Essential (primary) hypertension; R94.31 Abnormal electrocardiogram [ECG] [EKG]; I48.20 Chronic atrial fibrillation, unspecified; U07.1 COVID-19